=== PATIENT | female | born 1995 | race African-American/Black ===

== ENCOUNTER 2017-02-27 14:00 | Emergency (ER) | payer BC, MEDICARE, OTHER ==
[~2017-02-27] VITALS: Ht 160 cm; Wt 61.5 kg
[~2017-02-27 14:00] MED LIST: MACR100C PO; PYRI200T4 PO
[2017-02-27 14:18] VITALS: BP 112/75; PULSE 63; RESP 16; TEMP 98.7; O2SAT 100
[2017-02-27 15:24] LABS: AUTOMATED NEUTROPHIL # 3.1 TH/MM3 (1.8-7.7); BASOPHIL % 0.5 % (0.0-2.0); EOSINOPHIL % 0.5 % (0.0-4.0); HEMATOCRIT 34.3 % (35.0-46.0); HEMO FLAGS DIFF FINAL; LYMPHOCYTE # 1.7 TH/MM3 (1.0-4.8); MEAN CELL VOLUME 86.2 FL (80.0-100.0); MEAN CORPUSCULAR HEMOGLOBIN 28.8 PG (27.0-34.0); MEAN CORPUSCULAR HGB CONC 33.5 % (32.0-36.0); MONO % 5.6 % (0.0-8.0); NEUT % 59.4 % (16.0-70.0); PLATELET COUNT 236 TH/MM3 (150-450); RED BLOOD COUNT 3.98 MIL/MM3 (4.00-5.30); RED CELL DISTRIBUTION WIDTH 13.2 % (11.6-17.2); WHITE BLOOD COUNT 5.1 TH/MM3 (4.0-11.0)
[2017-02-27 15:31] LABS: BLOOD, URINE MOD (NEG); COMMENT (UR) CULT NOT INDICATED; CULTURE IF INDICATED CULT NOT INDICATED; GLUCOSE,URINE NEG (NEG); KETONE, URINE 10 mg/dL (NEG); NITRITE,URINE NEG (NEG); PH, URINE 7.5 (5.0-8.5); SQUAMOUS EPITHELIAL CELL URINE 4 /hpf (0-5); URINE COLOR LIGHT-YELLOW (YELLW/STRAW)
[2017-02-27 15:42] LABS: BICARBONATE 26.8 MEQ/L (21.0-32.0); POTASSIUM 3.6 MEQ/L (3.5-5.1)
--- NOTE | 2017-02-27 16:45 | PD ---
HPI Chief Complaint: Numbness/Tingling Time Seen by Provider: 16:30 Travel History International Travel<30 days: No Contact w/Intl Traveler<30days: No Traveled to known affect area: No History of Present Illness HPI 29-year-old female presents to the emergency department via EMS with complaint of a tingling sensation in her left arm that lasted approximately 1 minute followed by a cold feeling to bilateral lower extremities with tingling sensation to them also that lasted approximately 1 minute. Says she has history of similar symptoms but not this intense. Reports feeling heaviness in the affected extremities but were able to move them. Denies confusion, disorientation, slurred speech, change in mentation. Denies focal deficits or weakness. Reports feeling nauseated without vomiting. Denies nausea at this time. Reports occasional headaches, denies headache at this time. No known aggravating or relieving factors. Denies recent illness. Denies fevers. Denies pain. Denies chest pain, shortness of breath, abdominal pain, change in urine or stool. Last menstrual period was February 17. No known allergies. Does not have an established primary care provider. No current medications. History of asthma. Occasional alcohol use. Denies illicit drug use. Has no other medical complaints. No other modifying factors or associated signs and symptoms. PFSH Past Medical History Respiratory: Yes (ASTHMA) Social History Alcohol Use: No Tobacco Use: No Substance Use: No Allergies-Medications (Allergen,Severity, Reaction): Coded Allergies: No Known Allergies (Unverified Adverse Reaction, Unknown, 02/27/17) Reported Meds & Prescriptions Reported Meds & Active Scripts Active No Active Prescriptions or Reported Medications Review of Systems Except as stated in HPI: all other systems reviewed are Neg Physical Exam Narrative GENERAL: Well-nourished, well-developed patient, in no acute distress; afebrile , nontoxic-appearing SKIN: Warm and dry. HEAD: Atraumatic. Normocephalic. No facial droop noted. Tongue midline. EYES: Pupils equal and round at 3 mm. No scleral icterus. No injection or drainage. PERRLA. EOMI. ENT: Mucosa pink and moist. Airway patent. NECK: Trachea midline. No lymphadenopathy. CARDIOVASCULAR: Regular rate and rhythm. No murmur appreciated. RESPIRATORY: No accessory muscle use. Clear to auscultation. Breath sounds equal bilaterally. GASTROINTESTINAL: Abdomen soft, non-tender, nondistended. Hepatic and splenic margins not palpable. Bowel sounds are active 4 quadrants. MUSCULOSKELETAL: No obvious deformities. No clubbing. No cyanosis. No edema. BACK: No CVA tenderness. NEUROLOGICAL: Awake and alert. Oriented 4. No obvious cranial nerve deficits. Motor grossly within normal limits. Normal speech. No ataxia. No mid -line drift. Moves all extremities. 5/5 strength to all extremities. PSYCHIATRIC: Appropriate mood and affect; insight and judgment normal. Data Data Last Documented VS Vital Signs Date Time Temp Pulse Resp B/P (MAP) Pulse Ox O2 Delivery O2 Flow Rate FiO2 02/27/17 14:18 98.7 63 16 112/75 (87) 100 Room Air Orders Orders Complete Blood Count With Diff (02/27/17 14:30) Basic Metabolic Panel (Bmp) (02/27/17 14:30) Urinalysis - C+S If Indicated (02/27/17 14:30) Ed Urine Pregnancytest Poc (02/27/17 14:30) Labs Laboratory Tests Test 02/27/17 14:50 White Blood Count 5.1 TH/MM3 Red Blood Count 3.98 MIL/MM3 Hemoglobin 11.5 GM/DL Hematocrit 34.3 % Mean Corpuscular Volume 86.2 FL Mean Corpuscular Hemoglobin 28.8 PG Mean Corpuscular Hemoglobin Concent 33.5 % Red Cell Distribution Width 13.2 % Platelet Count 236 TH/MM3 Mean Platelet Volume 8.0 FL Neutrophils (%) (Auto) 59.4 % Lymphocytes (%) (Auto) 34.0 % Monocytes (%) (Auto) 5.6 % Eosinophils (%) (Auto) 0.5 % Basophils (%) (Auto) 0.5 % Neutrophils # (Auto) 3.1 TH/MM3 Lymphocytes # (Auto) 1.7 TH/MM3 Monocytes # (Auto) 0.3 TH/MM3 Eosinophils # (Auto) 0.0 TH/MM3 Basophils # (Auto) 0.0 TH/MM3 CBC Comment DIFF FINAL Differential Comment Urine Color LIGHT-YELLOW Urine Turbidity CLEAR Urine pH 7.5 Urine Specific Binger 1.011 Urine Protein NEG mg/dL Urine Glucose (UA) NEG mg/dL Urine Ketones 10 mg/dL Urine Occult Blood MOD Urine Nitrite NEG Urine Bilirubin NEG Urine Urobilinogen LESS THAN 2.0 MG/DL Urine Leukocyte Esterase NEG Urine RBC 2 /hpf Urine WBC LESS THAN 1 /hpf Urine Squamous Epithelial Cells 4 /hpf Microscopic Urinalysis Comment CULT NOT INDICATED Blood Urea Nitrogen 11 MG/DL Creatinine 0.74 MG/DL Random Glucose 83 MG/DL Calcium Level 8.8 MG/DL Sodium Level 139 MEQ/L Potassium Level 3.6 MEQ/L Chloride Level 106 MEQ/L Carbon Dioxide Level 26.8 MEQ/L Anion Gap 6 MEQ/L Estimat Glomerular Filtration Rate 120 ML/MIN MDM Medical Decision Making Medical Screen Exam Complete: Yes Emergency Medical Condition: Yes Medical Record Reviewed: Yes Differential Diagnosis Tingling in extremities, anxiety, medical clearance Narrative Course 21-year-old female presents via EMS for an episode of tingling sensation to her left upper extremity and bilateral lower extremities. Symptoms lasted approximately 1 minute. She has no current complaints. Neuro exam is unremarkable. CBC, BMP, urinalysis is unremarkable. 1710: Dr. Morrison evaluated the patient and agrees the patient is stable for discharge. Instructed patient to follow up with neurology as needed. Discussed reasons to return to the emergency department patient verbalized understanding and agreement. Instructed patient to follow up with primary care provider. Patient verbalizes understanding and agreement with treatment plan. Patient is medically cleared and stable for discharge. Discussed reasons to return to the emergency department. Patient agrees with treatment plan. The patients vital signs are stable and the patient is stable for outpatient follow- up and treatment. Patient discharged home, stable and in no acute distress. Diagnosis Primary Impression: Tingling in extremities Referrals: [facility] Primary Care Physician Patient Instructions: General Instructions Additional Instructions: Follow-up with primary care provider Follow-up with neurologist as needed Return to the emergency department immediately with worsening of symptoms Med/Other Pt SpecificInfo: No Change to Meds, No Meds Exist/No RX given Scripts No Active Prescriptions or Reported Meds Disposition: DISCHARGE HOME Condition: Stable Parvin Shine Feb 27, 2017 16:45
[2017-02-27 17:32] VITALS: BP 108/77
== END 2017-02-27 17:36 | disposition home or self-care (01) ==
LOC: NEPD 14:00
DX: R20.0 Anesthesia of skin (principal); R51 Headache; J45.909 Unspecified asthma, uncomplicated
CPT/HCPCS: 80048; 81001; 84703; 85025; 99283